=== PATIENT | female | born 1955 | race Caucasian/White ===

== ENCOUNTER 2017-10-21 00:38 | Emergency (ER) | payer OTHER, MEDICARE ==
[~2017-10-21] VITALS: Ht 170.2 cm; Wt 111.1 kg
[~2017-10-21 00:38] MED LIST: ATORVASTATIN CA10 MG PO; BENZTROPINE1 MG PO; IBUPROFEN600 M1 PO; MEDROL DOSEPAK1 PAC PO; NOVOLOG MIX 70/33 ML SC; RISPERIDONE3 MG PO; TESSALON PERLE100 MG PO; ZOFRAN4 M1 SL
--- NOTE | 2017-10-21 01:04 | ED AMS/SEIZURE/WEAK/DIZZY ---
History of Present Illness General Chief Complaint: General Adult Stated Complaint: "HEART RACING,@ HOME BLOOD SUGAR 51" Source: patient, old records Exam Limitations: no limitations Vital Signs & Intake/Output Vital Signs & Intake/Output Vital Signs Date Time Temp Pulse Resp B/P B/P Pulse O2 O2 Flow FiO2 Mean Ox Delivery Rate 10/21 0056 97 Room Air 10/21 0045 97.6 98 18 168/76 99 Room Air Allergies Coded Allergies: codeine (UNKNOWN 06/18/15) Reconcile Medications Atorvastatin Calcium (Lipitor) 10 MG TAB 1 TAB PO DAILY CHOLESTEROL (Reported ) Benztropine Mesylate (Benztropine) 1 MG TAB 1 TAB PO BID MENTAL HEALTH ( Reported) Ibuprofen 600 MG TABLET 1 TAB PO TID PRN pain with food INSULIN ASPART PROTAM & ASPART (Novolog Mix 70-30 Flexpen Syrn) 3 ML SHAWN DIABETES (Reported) Risperidone 3 MG TAB 1 TAB PO QPM MENTAL HEALTH (Reported) Triage Note: PT FROM HOME C/O HYPOGYLCEMIC PER PT. PT STATES SHE ATE DINNER ([employer]) AROUND 1800. PT STATES SHE MEDICATED HERSELF WITH 30 UNITS TRESIBA BETWEEN [id number]. PT CHECKED SUGAR AND IT WAS 51. PT DIAPHORETIC ON ARRIVAL AND NOT WILLING TO TALK, PT CONTINUALLY SLAMMING PEN ON PTS NOTEPAD STATING "RIGHT HERE RIGHT HERE" WHEN THIS RN WENT TO READ PTS "NOTEPAD" IT STATED "51 AT 0029, FOR MY ROBERT BLESS HER" WHEN THIS RN ASKED PT WHAT TIME AND WHAT EXACTLY SHE ATE FOR A MEAL, PT REFUSED TO ANSWER POINTED TO HER NOTEPAD. PT BEGAN NEW INSULIN ON THE . PT NOT COOPERATING WHEN THIS RN ASKED QUESTIONED "FIRST PAGE FIRST PAGE" PT CONTINUALLY SAYING. PT REMAINS ON MONITOR. Triage Nurses Notes Reviewed? yes Onset: Just prior to arrival Duration: minute(s):, constant, continues in ED Timing: single episode today Injury Environment: home Severity: severe No Modifying Factors: none Associated Symptoms: diaphoresis LMP (ages 10-50): post menopausal : No Patient currently breastfeeds: No HPI: The patient has changed to a vegan diet in order to lose weight for hernia surgery and improve her blood sugar. 10:30 PM patient dose herself with Tresiba. 12:30AM patient awoke with palpitations sweating blurred vision. Her blood sugar was 51. She denies fever chills nausea vomiting diarrhea abdominal pain chest pain shortness of breath headache dysuria rash bleeding. Past History Travel History Traveled to [place] past 21 day No Medical History Any Pertinent Medical History? see below for history Cardiovascular: HTN HIGH CHOLESTEROL Endocrine: diabetes Surgical History Surgical History: non-contributory Psychosocial History What is your primary language Turkish Tobacco Use: Never used Family History Hx Contributory? No Review of Systems Review of Systems Constitutional: Reports: see HPI, diaphoresis, weakness. EENTM: Reports: no symptoms. Respiratory: Reports: no symptoms. Cardiovascular: Reports: see HPI, palpitations. GI: Reports: no symptoms. Genitourinary: Reports: no symptoms. Musculoskeletal: Reports: no symptoms. Skin: Reports: no symptoms. Neurological/Psychological: Reports: no symptoms. Hematologic/Endocrine: Reports: no symptoms. Immunologic/Allergic: Reports: no symptoms. All Other Systems: Reviewed and Negative Physical Exam Physical Exam General Appearance: well developed/nourished, alert, awake, anxious, moderate distress, obese Head: atraumatic, normal appearance Eyes: Bilateral: normal appearance, PERRL, EOMI. Ears, Nose, Throat: normal pharynx, normal ENT inspection, hearing grossly normal Neck: normal inspection, supple, full range of motion, no midline tenderness Respiratory: normal breath sounds, chest non-tender, no respiratory distress, quiet respiration, lungs clear Cardiovascular: regular rate/rhythm, normal peripheral pulses, norml femoral pulses equa Peripheral Pulses: 4+ carotid (R), 4+ carotid (L) Gastrointestinal: normal bowel sounds, soft, non-tender, no organomegaly Back: normal inspection, normal range of motion, no vertebral tenderness Extremities: normal range of motion, no ligament instability Neurologic/Psych: no motor/sensory deficits, awake, alert, oriented x 3, normal gait, normal mood/affect, youth services specialist II-XII nml as tested Reflexes: 2+: bicep (R), bicep (L). Skin: intact, normal color, warm/dry Lymphatic: no anterior cervical debbie Core Measures ACS in differential dx? No CVA/TIA Diagnosis No Sepsis Present: No Sepsis Focused Exam Completed? No Progress Differential Diagnosis: dehydration, drug intoxication, electrolyte imbalance, hypoxia Plan of Care: Orders Procedure Date/time Status EKG 10/21 0040 Active Initial ED EKG: normal axis, normal intervals, normal p-waves, normal QRS complex, normal sinus rhythm, no ST T wave changes Prior EKG: unchanged Rhythm Strip: normal sinus rhythm Departure Departure Time of Disposition: 0300 Disposition: HOME OR SELF CARE Condition: Stable Clinical Impression Primary Impression: Hypoglycemia associated with diabetes Referrals: Yola BECK,Donte (PCP/Family) Desmond Ta MD Departure Forms: Customer Survey General Discharge Information
[2017-10-21 03:13] VITALS: BP 165/68
== END 2017-10-21 03:14 ==
LOC: ERH 00:38
DX: E11.649 Type 2 diabetes mellitus with hypoglycemia without coma (principal); Z79.4 Long term (current) use of insulin; R00.2 Palpitations
CPT/HCPCS: 93005; 93010